=== PATIENT | female | born 1970 ===

== ENCOUNTER → 2017-04-16 | Outpatient (CLI) | payer OTHER | END | disposition home or self-care (01) | LOC: RAD 17:25 | DX: M54.5 Low back pain (principal); M54.16 Radiculopathy, lumbar region; M54.42 Lumbago with sciatica, left side; M54.30 Sciatica, unspecified side; M17.0 Bilateral primary osteoarthritis of knee; M15.0 Primary generalized (osteo)arthritis; M19.90 Unspecified osteoarthritis, unspecified site ==